=== PATIENT | male | born 1970 | race African-American/Black ===

== ENCOUNTER 2019-06-19 10:56 | Emergency (ER) | payer SELFPAY ==
[~2019-06-19] VITALS: Ht 188 cm; Wt 122.5 kg
[2019-06-19 11:00] VITALS: BP 136/72
--- NOTE | 2019-06-19 11:08 | NUR ---
ED Nurse Note: PT WALKED IN DUE TO RIGHT HIP AND BILATERAL KNEE PAIN AFTER FALL INCIDENT ON SUNDAY. DENIES HEAD INJURY OR LOC. AAO X4 AND AMBULATES WITH STEADY GAIT.
[2019-06-19] MEDS ORDERED: IBUPROFEN600 MG ORAL (11:48)
[2019-06-19] MEDS ORDERED: ROBAXIN-750750 MG PO (11:48)
[2019-06-19 11:57] VITALS: BP 130/70
--- NOTE | 2019-06-19 11:57 | NUR ---
ER DISCHARGE NOTE: Patient is cleared to be discharged per ERMD, pt is aox4, on room air, with stable vital signs. pt was given dc and prescription instructions, pt was able to verbalize understanding, pt id band removed without complications. pt is able to ambulate with steady gait. pt took all belongings.
--- NOTE | 2019-06-19 12:05 | Emergency Room Report ---
History of Present Illness General Chief Complaint: Pain Source: Patient Present Illness HPI Patient presents with complaints of body ache specifically also both knees and left ankle Patient had a fall on Sunday he was in the restroom When he turned slipping and falling backwards Denies any head injury denies any chest pain or shortness of breath denies any abdominal pain he feels that he has been getting more tight In his knees and also the left ankle Allergies: Coded Allergies: No Known Allergies (Unverified , 06/19/19) Patient History Past Medical History: see triage record Reviewed Nursing Documentation: PMH: Agreed; PSxH: Agreed Nursing Documentation-PMH Past Medical History: No History, Except For Hx Cardiac Problems: No Hx Hypertension: No Hx Pacemaker: No Hx Asthma: Yes Hx COPD: No Hx Diabetes: No Hx Cancer: No Hx Gastrointestinal Problems: No Hx Dialysis: No History Of Psychiatric Problem: No Hx Neurological Problems: No Hx Cerebrovascular Accident: No Hx Seizures: No Review of Systems All Other Systems: negative except mentioned in HPI Physical Exam Vital Signs Date Time Temp Pulse Resp B/P (MAP) Pulse Ox O2 Delivery O2 Flow Rate FiO2 06/19/19 11:00 98.2 62 17 136/72 98 Room Air Sp02 EP Interpretation: reviewed, normal General Appearance: well appearing, no apparent distress Head: normocephalic, atraumatic Eyes: bilateral eye PERRL, bilateral eye EOMI ENT: hearing grossly normal, EOM grossly intact Neck: supple, no bony tend Respiratory: lungs clear, no retraction, no accessory muscle use Cardiovascular #1: regular rate, rhythm Gastrointestinal: non tender, soft Musculoskeletal: other - Some discomfort on palpation of both knees, also right shoulder, no midline step-offs patient ambulatory Neurologic: alert, oriented x3 Psychiatric: normal inspection Skin: no rash Lymphatic: no adenopathy Medical Decision Making Diagnostic Impression: Primary Impression: contusions Additional Impression: sprain ER Course Patient's clinical history and presentation has multiple differentials and consideration At this time I do not suspect any obvious acute fractures patient will have initial conservative outpatient trial and return with any concerns Last Vital Signs Date Time Temp Pulse Resp B/P (MAP) Pulse Ox O2 Delivery O2 Flow Rate FiO2 06/19/19 11:57 98.2 66 16 130/70 99 Room Air Status: unchanged Disposition: HOME, SELF-CARE Condition: Stable Scripts Methocarbamol* (ROBAXIN-750*) 750 Mg Tablet 750 MG PO TID, #21 TAB 0 Refills Prov: Yohannes Carson DO 06/19/19 Ibuprofen* (MOTRIN*) 600 Mg Tablet 600 MG ORAL Q8H PRN for For Pain, #20 TAB 0 Refills Prov: Yohannes Carson DO 06/19/19 Referrals: [facility] Rogelio Yeager. [facility] Patient Instructions: Ankle Sprain, [id number], Contusion, [id number] Additional Instructions: Patient is provided with the discharge instructions notified to follow up with primary doctor in the next 2-3 days otherwise return to the er with any worsening symptoms. Please note that this report is being documented using [employer] technology. This can lead to erroneous entry secondary to incorrect interpretation by the dictating instrument. Yohannes Carson DO Jun 19, 2019 12:05
== END 2019-06-19 11:57 | disposition home or self-care (01) ==
LOC: EMR 11:15
DX: S93.402A Sprain of unspecified ligament of left ankle, initial encounter (principal); S80.02XA Contusion of left knee, initial encounter; S80.01XA Contusion of right knee, initial encounter; S40.011A Contusion of right shoulder, initial encounter; J45.909 Unspecified asthma, uncomplicated; W01.0XXA Fall on same level from slipping, tripping and stumbling without subsequent striking against object, initial encounter; Y93.89 Activity, other specified; Y92.9 Unspecified place or not applicable
CPT/HCPCS: 99282